=== PATIENT | male | born 1950 | race Hispanic/Latino ===

== ENCOUNTER 2021-10-16 10:20 | Emergency (ER) | payer OTHER ==
--- OUTSIDE RECORDS SUMMARY | 2021-10-16 10:22 | XMS REPORT | Continuity of Care Document ---
:1950 Author Organization [facility] t Address [address] [place] [address] Dr. Lujan [address] [place] [id number] Care Team Providers Name Role Phone Raju_P Attending Clinician Unavailable Abdirizak-Mbayo_A_AH Attending Clinician Unavailable Raju_P Admitting Clinician Unavailable Abdirizak-Mbayo_A_AH Admitting Clinician Unavailable Payers Payer Name Policy Type Policy Number Effective Date Expiration Date S ivon [facility] [place] - [id number] 2019 [employer] 00:00:00 (MEDICARE REPLACEMENT/ADVANT AGE - HMO) Problems This patient has no known problems. Allergies, Adverse Reactions, Alerts This patient has no known allergies or adverse reactions. Medications This patient has no known medications. Procedures This patient has no known procedures. Encounters Start End Encounter Admission Attending Care Care Encounter Source Date/Time Date/Time Type Type Clinicians Facility Department ID 2020-07-29 2020-07-29 Outpatient Raju_P [facility] [id number] [place] 10:55:00 10:55:00 [facility] 2019-08-07 2019-08-07 Outpatient Abdirizak-Mbayo VFP VFP [phone] [facility] 07:19:00 07:19:00 _A_AH [id number] Family Practic e Results This patient has no known results.
[2021-10-16] MEDS ORDERED: NA CHLORIDE 0.9% 1,000 ML ONE (11:01)
[2021-10-16] MEDS ORDERED: MORPHINE 4 MG/ML SYR ONE (11:01)
[2021-10-16] MEDS ORDERED: ONDANSETRON 4 MG/2 ML VIAL ONE (11:01)
[2021-10-16 11:04] LABS: Absolute Lymphocytes (CBC) 1.2 K/uL (0.7-4.9); MPV 7.4 fL (7.6-11.3); RBC Red Blood Cell Count 4.41 M/uL (4.33-5.43)
[2021-10-16 11:22] LABS: Albumin 3.6 g/dL (3.4-5.0); Potassium 3.5 mmol/L (3.5-5.1); Protein, Total 7.3 g/dL (6.4-8.2)
--- NOTE | 2021-10-16 11:31 | RAD REPORT ---
EXAM DESCRIPTION: CT - Stone Protocol - 10/16/2021 11:11 am CLINICAL HISTORY: Flank pain, kidney stone suspected COMPARISON: <Comparisons> TECHNIQUE: Axial 3 mm thick images were obtained without oral or IV contrast. The [id number]-guhk span s the entirety of the system including uppermost abdomen and lung bases. All CT scans are performed using dose optimization technique as appropriate and may include automated exposure control or mA/KV adjustment according to patient size. FINDINGS: No hydronephrosis of either kidney is present. The patient does have a 6 millimeter stone in the distal right ureter approximately 2 cm from the UVJ. This may be nonobstructive because the pr ovided history was left flank pain. No stone in the left collecting system. Patient has bilateral non obstructing calyx or pyramid calculi. A 2-3 mm stone is seen in the anterior mid right kidney. 2 mm c alcifications seen in the anterior mid left kidney with 3 mm anterior lower pole and 7 mm left lower pole calculus present. The 7 mm calcification is new or enlarged from prior imaging. Minimal perineph kyung stranding is present similar to comparison. No suspicious renal masses. Isodense masses and pyelo nephritis are not excluded on a stone protocol CT scan. No significant adrenal finding. No bladder ca lculus is present. Calcifications are seen in the prostate gland similar to comparison. A 16 mm low-density mass upper pole right kidney is probably a cyst, enlarged from prior imaging. Imaged portions of the liver, spleen and pancreas show no suspicious findings on non-contrast imaging . No gallbladder or biliary tree abnormality identified. No suspicious bowel findings. No appendicitis findings. Moderate severity diverticulosis of the sigmo id colon present without diverticulitis. No mass or bulky lymphadenopathy. Small bilateral fat filled inguinal hernias are present showing sli ght enlargement from 2017. No edematous or congested appearance to the fat. No free air, free fluid o r inflammatory stranding. No significant bony abnormality. IMPRESSION: Provided history is left-sided flank pain. There is no left-sided hydronephrosis or obst ructing calculus. Nonobstructing calculi are present on the left as detailed. Distal right ureter 6 mm calcification 2 cm from the UVJ. There is no right-sided hydronephrosis. Rig ht-sided nonobstructing calyx calculi noted. Right kidney 16 mm round low-density mass is probably an incidental cyst enlarged from 2017. Full ass essment is limited in the absence contrast. No acute or emergent abdominal or pelvic finding. Isodense masses and pyelonephritis are not excluded on stone protocol technique.
[2021-10-16 13:14] LABS: Urine Blood 2+ (Negative); Urine Glucose Negative (Negative); Urine Protein Negative (Negative); Urine Specific Gravity >=1.030 (1.005-1.030)
[2021-10-16 13:25] LABS: Urine Bacteria NONE SEEN /HPF (NONE SEEN); Urine RBC <5 /HPF (NONE SEEN)
--- NOTE | 2021-10-16 13:34 | ER ---
Nurse's Notes [facility] Name: Baljit Kelley Age: 70 yrs Sex: Male : 1950 Arrival Date: 10/16/2021 Time: 10:22 Bed 16 Private MD: Abner Chiu R Diagnosis: Calculus of ureter Presentation: 10/16 10:31 Chief complaint: Patient states: "I started having pain in my left flank 3 days ago and ab2 its been getting worse, now I cant walk without pain." Pt denies any burning with urination or blood in the urine. Coronavirus screen: Vaccine status: Patient reports receiving the 2nd dose of the covid vaccine. Client denies travel out of the [place] in the last 14 days. At this time, the client does not indicate any symptoms associated with coronavirus-19. Ebola Screen: Patient negative for fever greater than or equal to 101.5 degrees Fahrenheit, and additional compatible Ebola Virus Disease symptoms Patient denies exposure to infectious person. Patient denies travel to an Ebola-affected area in the 21 days before illness onset. No symptoms or risks identified at this time. Initial Sepsis Screen: Does the patient meet any 2 criteria? No. Patient's initial sepsis screen is negative. Does the patient have a suspected source of infection? No. Patient's initial sepsis screen is negative. Risk Assessment: Do you want to hurt yourself or someone else? Patient reports no desire to harm self or others. Onset of symptoms is unknown. 10:31 Method Of Arrival: Ambulatory ab2 10:31 Acuity: DEVI 3 ab2 Triage Assessment: 10:33 General: Appears in no apparent distress. uncomfortable, Behavior is calm, cooperative, ab2 appropriate for age. Pain: Complains of pain in left low back. Neuro: Level of Consciousness is awake, alert, obeys commands, Oriented to person, place, time, situation, Appropriate for age. Cardiovascular: No deficits noted. Denies chest pain, shortness of breath, Patient's skin is warm and dry. Respiratory: Airway is patent Respiratory effort is even, unlabored, Respiratory pattern is regular, symmetrical. GI: No deficits noted. No signs and/or symptoms were reported involving the gastrointestinal system. : Reports pain in left flank(s), Denies burning with urination, inability to void, urinary frequency, urgency. Historical: - Allergies: 10:33 No Known Allergies; ab2 - PMHx: 10:33 None; ab2 - PSHx: 10:33 None; ab2 - Immunization history:: Adult Immunizations up to date. - Social history:: Smoking status: Patient denies any tobacco usage or history of. Screenin:15 Abuse screen: Denies threats or abuse. Nutritional screening: No deficits noted. jd3 Tuberculosis screening: No symptoms or risk factors identified. Fall Risk Ambulatory Aid- None/Bed Rest/Nurse Assist (0 pts). Gait- Normal/Bed Rest/Wheelchair (0 pts) Mental Status- Oriented to own ability (0 pts). Total Ansari Fall Scale indicates No Risk (0-24 pts). Assessment: 10:55 General: Appears in no apparent distress. comfortable, Behavior is calm, cooperative, jd3 appropriate for age. Pain: Complains of pain in left flank Quality of pain is described as aching, crampy, radiating. Neuro: Level of Consciousness is awake, alert, obeys commands, Oriented to person, place, time, situation. Cardiovascular: Capillary refill < 3 seconds Patient's skin is warm and dry. Respiratory: Airway is patent Respiratory effort is even, unlabored, Respiratory pattern is regular, symmetrical, Denies cough, shortness of breath. GI: Abdomen is round non-distended, Abd is soft and non tender X 4 quads. Patient currently denies diarrhea, nausea, vomiting. : Reports pain in left flank(s), Denies burning with urination, blood in urine. EENT: No signs and/or symptoms were reported regarding the EENT system. Derm: Skin is intact, Skin is dry, Skin is normal, Skin temperature is warm. Musculoskeletal: Circulation, motion, and sensation intact. Range of motion: intact in all extremities. 11:16 Reassessment: Patient appears in no apparent distress at this time. Patient and/or jd3 family updated on plan of care and expected duration. Pain level reassessed. Patient is alert, oriented x 3, equal unlabored respirations, skin warm/dry/pink. 13:07 Reassessment: Patient appears in no apparent distress at this time. Patient and/or jd3 family updated on plan of care and expected duration. Pain level reassessed. Patient is alert, oriented x 3, equal unlabored respirations, skin warm/dry/pink. Patient states feeling better. 13:53 Reassessment: Patient appears in no apparent distress at this time. Patient and/or jd3 family updated on plan of care and expected duration. Pain level reassessed. Patient is alert, oriented x 3, equal unlabored respirations, skin warm/dry/pink. Patient states feeling better. Vital Signs: 10:31 BP 137 / 94; Pulse 68; Resp 17; Temp 98.2; Pulse Ox 98% ; Weight 86.18 kg; Height 5 ft. ab2 7 in. (170.18 cm); Pain 10/10; 13:07 BP 128 / 89; Pulse 67; Resp 18 S; Pulse Ox 99% on R/A; jd3 10:31 Body Mass Index 29.76 (86.18 kg, 170.18 cm) ab2 ED Course: 10:22 Patient arrived in ED. am2 10:22 Abner Chiu MD is Private Physician. am2 10:33 Triage completed. ab2 10:34 Arm band placed on right wrist. ab2 10:35 Barber Harris NP is PHCP. pm1 10:35 Leonel Trinh MD is Attending Physician. pm1 10:37 Bhaskar Reno RN is Primary Nurse. jd3 10:55 Inserted saline lock: 20 gauge in left antecubital area, using aseptic technique. Blood jd3 collected. 11:13 CT Stone Protocol In Process Unspecified. EDMS 11:15 Patient has correct armband on for positive identification. Bed in low position. Call jd3 light in reach. Side rails up X 1. Adult w/ patient. Pulse ox on. NIBP on. 13:53 No provider procedures requiring assistance completed. IV discontinued, intact, jd3 bleeding controlled, No redness/swelling at site. Pressure dressing applied. Administered Medications: 11:02 Drug: NS 0.9% 1000 ml Route: IV; Rate: 1 bolus; Site: left antecubital; jd3 12:00 Follow up: Response: No adverse reaction; IV Status: Completed infusion; IV Intake: jd3 1000ml 11:02 Drug: morphine 4 mg Route: IVP; Site: left antecubital; jd3 12:00 Follow up: Response: No adverse reaction; RASS: Alert and Calm (0) jd3 11:03 Drug: Zofran (Ondansetron) 4 mg Route: IVP; Site: left antecubital; jd3 12:00 Follow up: Response: No adverse reaction jd3 Intake: 12:00 IV: 1000ml; Total: 1000ml. jd3 Outcome: 13:33 Discharge ordered by . pm1 13:53 Discharged to home ambulatory, with family. jd3 13:53 Condition: stable 13:53 Discharge instructions given to patient, Instructed on discharge instructions, follow up and referral plans. medication usage, Demonstrated understanding of instructions, follow-up care, medications, Prescriptions given X 2. 13:53 Patient left the ED. jd3 Signatures: Dispatcher [employer] EDMS Barber Harris NP ELEMENTARY TEACHER pm1 Olga Lidia Tran am2 Bhaskar Reno RN RN jd3 Titi Will2
--- NOTE | 2021-10-16 13:34 | EDPHYS ---
Physician Documentation [facility] Name: Baljit Kelley Age: 70 yrs Sex: Male : 1950 Arrival Date: 10/16/2021 Time: 10:22 Bed 16 Private MD: Abner Chiu R ED Physician Leonel Trinh HPI: 10/16 10:40 This 70 yrs old Male presents to ER via Ambulatory with complaints of Flank pm1 Pain. 10:40 The patient complains of pain in the left low back. The pain radiates to the left pm1 groin. Onset: The symptoms/episode began/occurred 3 day(s) ago. Modifying factors: The symptoms are alleviated by nothing. the symptoms are aggravated by nothing. Associated signs and symptoms: Pertinent negatives: diarrhea, dysuria, fever, hematuria, nausea, vomiting. Severity of pain: in the emergency department the pain is unchanged. The patient has experienced similar episodes in the past, a few times, today's symptoms are similar, to previous kidney stones. The patient has not recently seen a physician. Historical: - Allergies: 10:33 No Known Allergies; ab2 - PMHx: 10:33 None; ab2 - PSHx: 10:33 None; ab2 - Immunization history:: Adult Immunizations up to date. - Social history:: Smoking status: Patient denies any tobacco usage or history of. ROS: 10:40 Constitutional: Negative for fever, chills, and weight loss, Cardiovascular: Negative pm1 for chest pain, palpitations, and edema, Respiratory: Negative for shortness of breath, cough, wheezing, and pleuritic chest pain. 10:40 : Negative for injury, bleeding, discharge, and swelling, MS/Extremity: Negative for injury and deformity, Skin: Negative for injury, rash, and discoloration, Neuro: Negative for headache, weakness, numbness, tingling, and seizure. 10:40 Abdomen/GI: Negative for abdominal pain, nausea, vomiting, and diarrhea, constipation. 10:40 Back: Positive for flank pain, on the left. 10:40 All other systems are negative. Exam: 10:40 Constitutional: This is a well developed, well nourished patient who is awake, alert, pm1 and in no acute distress. Head/Face: Normocephalic, atraumatic. 10:40 Back: No spinal tenderness. No costovertebral tenderness. Full range of motion. Skin: Warm, dry with normal turgor. Normal color with no rashes, no lesions, and no evidence of cellulitis. MS/ Extremity: Pulses equal, no cyanosis. Neurovascular intact. Full, normal range of motion. 10:40 Cardiovascular: Exam negative for acute changes, Rate: normal, Rhythm: regular, Pulses: no pulse deficits are appreciated, Heart sounds: normal. 10:40 Respiratory: Exam negative for acute changes, respiratory distress, shortness of breath, Breath sounds: are clear throughout. 10:40 Abdomen/GI: Inspection: abdomen appears normal, Palpation: abdomen is soft and non-tender, in all quadrants. 10:40 Neuro: Exam negative for acute changes, Orientation: is normal, Mentation: is normal, Motor: is normal, moves all fours. Vital Signs: 10:31 BP 137 / 94; Pulse 68; Resp 17; Temp 98.2; Pulse Ox 98% ; Weight 86.18 kg; Height 5 ft. ab2 7 in. (170.18 cm); Pain 10/10; 13:07 BP 128 / 89; Pulse 67; Resp 18 S; Pulse Ox 99% on R/A; jd3 10:31 Body Mass Index 29.76 (86.18 kg, 170.18 cm) ab2 MDM: 10:35 Patient medically screened. pm1 11:42 Special discussion: I discussed with the patient the need to follow-up with the pm1 PCP/specialist for the noted incidental finding on X-ray/CT scanning. follow up with PCP for further monitoring of incidental cyst finding that has changed in size since last imaging. 12:07 Data reviewed: vital signs. Data interpreted: Pulse oximetry: on room air is 98 %. pm1 Interpretation: normal. 13:32 Counseling: I had a detailed discussion with the patient and/or guardian regarding: the pm1 historical points, exam findings, and any diagnostic results supporting the discharge/admit diagnosis, lab results, radiology results, the need for outpatient follow up, to return to the emergency department if symptoms worsen or persist or if there are any questions or concerns that arise at home. 10/16 10:40 Order name: CBC with Diff; Complete Time: 11:07 pm1 10/16 10:40 Order name: CMP; Complete Time: 11:28 pm1 10/16 10:40 Order name: Lipase; Complete Time: 11:28 pm1 10/16 10:40 Order name: Urine Microscopic Only; Complete Time: 13:32 pm1 10/16 10:46 Order name: CT Stone Protocol; Complete Time: 11:37 pm1 10/16 13:14 Order name: Urine Dipstick-Ancillary; Complete Time: 13:32 EDMS 10/16 10:40 Order name: IV Saline Lock; Complete Time: 10:55 pm1 10/16 10:40 Order name: Labs collected and sent; Complete Time: 10:55 pm1 10/16 10:40 Order name: Urine Dipstick-Ancillary (obtain specimen); Complete Time: 13:22 pm1 Administered Medications: 11:02 Drug: NS 0.9% 1000 ml Route: IV; Rate: 1 bolus; Site: left antecubital; jd3 12:00 Follow up: Response: No adverse reaction; IV Status: Completed infusion; IV Intake: jd3 1000ml 11:02 Drug: morphine 4 mg Route: IVP; Site: left antecubital; jd3 12:00 Follow up: Response: No adverse reaction; RASS: Alert and Calm (0) jd3 11:03 Drug: Zofran (Ondansetron) 4 mg Route: IVP; Site: left antecubital; jd3 12:00 Follow up: Response: No adverse reaction jd3 Disposition: 15:50 Co-signature as Attending Physician, Leonel Trinh MD I agree with the assessment and kdr plan of care. Disposition Summary: 10/16/21 13:33 Discharge Ordered Location: Home pm1 Problem: new pm1 Symptoms: have improved pm1 Condition: Stable pm1 Diagnosis - Calculus of ureter pm1 Followup: pm1 - With: Emergency Department - When: As needed - Reason: Worsening of condition Followup: pm1 - With: Private Physician - When: 2 - 3 days - Reason: Recheck today's complaints, Continuance of care, Re-evaluation by your physician Discharge Instructions: - Discharge Summary Sheet pm1 - Kidney Stones pm1 - Dietary Guidelines to Help Prevent Kidney Stones pm1 Forms: - Medication Reconciliation Form pm1 - Thank You Letter pm1 - Antibiotic Education pm1 - Prescription Opioid Use pm1 Prescriptions: - Flomax 0.4 mg Oral capsule - take 1 capsule by ORAL route once daily As needed 1/2 hour following the same pm1 meal each day; 5 capsule; Refills: 0, Product Selection Permitted - Tramadol 50 mg Oral Tablet - take 1 tablet by ORAL route every 8 hours as needed; 12 tablet; Refills: 0, pm1 Product Selection Permitted Signatures: Leonel Cristina MD MD kdr Marinas, Patrick, NP INSTRUCTOR WARPER pm1 Bhaskar Reno RN RN jd3 Titi Will ab2
[2021-10-16 14:42] VITALS: BP 128/89; TEMP 98.2; O2SAT 99
== END 2021-10-16 13:53 | disposition home or self-care (01) ==
LOC: ER 10:20
DX: N20.1 Calculus of ureter (principal)
CPT/HCPCS: 96361; 85025; 36415; 83690; 80053; 76377; 74176; 96375; 96374; 99284; J7030; J2405; 81003; 81015

== ENCOUNTER 2021-11-29 11:53 | Emergency (ER) | payer OTHER ==
--- OUTSIDE RECORDS SUMMARY | 2021-11-29 11:57 | XMS REPORT | Continuity of Care Document ---
:1950 Author Organization [facility] t Address [facility] [place] [address] Lujan [address] [place] [address] Care Team Providers Name Role Phone Raju_P Attending Clinician Unavailable Abdirizak-Mbayo_A_AH Attending Clinician Unavailable Raju_P Admitting Clinician Unavailable Abdirizak-Mbayo_A_AH Admitting Clinician Unavailable Payers Payer Name Policy Type Policy Number Effective Date Expiration Date S ivon [facility] [place] - [id number] 2019 [employer] 00:00:00 (MEDICARE REPLACEMENT/ADVANT AGE - [...] ID 2020-07-29 2020-07-29 Outpatient Raju_P [facility] [id number] [place] 10:55:00 10:55:00 [facility]10 [facility] 2019-08-07 2019-08-07 Outpatient Abdirizak-Mbayo VFP VFP [id number] [facility] 07:19:00 07:19:00 _A_AH [id number] Family Practic e Results This patient has no known results.
--- NOTE | 2021-11-29 13:28 | RAD REPORT ---
EXAM DESCRIPTION: CT - Head Brain Wo Cont - 11/29/2021 1:22 pm CLINICAL HISTORY: Vision loss, monocular Headache, drowsiness, CVA symptomology COMPARISON: No comparisons TECHNIQUE: All CT scans are performed using dose optimization technique as appropriate and may inclu de automated exposure control or mA/KV adjustment according to patient size. FINDINGS: No intracranial hemorrhage, hydrocephalus or extra-axial fluid collection.No areas of brai n edema or evidence of midline shift. The paranasal sinuses and mastoids are clear. The calvarium is intact. IMPRESSION: No acute intracranial abnormality.
[2021-11-29 14:46] LABS: Absolute Lymphocytes (CBC) 2.3 K/uL (0.7-4.9); Hematocrit 41.6 % (39.6-49.0); Lymphocytes % 33.4 % (15.3-44.8); MPV 7.1 fL (7.6-11.3); RBC Red Blood Cell Count 4.51 M/uL (4.33-5.43)
[2021-11-29 14:51] LABS: Protime INR 0.96
[2021-11-29] MEDS ORDERED: ASPIRIN 81 MG CHEWABLE TABLET ONE (15:04)
[2021-11-29 15:06] LABS: ALT/SGPT 21 U/L (12-78); AST/SGOT 17 U/L (15-37); Albumin 3.7 g/dL (3.4-5.0); Alkaline Phosphatase 69 U/L (45-117); BUN Blood Urea Nitrogen 16 mg/dL (7-18); Bicarbonate 28 mmol/L (21-32); Bilirubin Total 0.5 mg/dL (0.2-1.0); Glomerular Filtration Rate 75 ml/min (=/>90); Glucose Level 83 mg/dL (74-106); Magnesium 2.3 mg/dL (1.8-2.4); Potassium 3.7 mmol/L (3.5-5.1); Protein, Total 7.9 g/dL (6.4-8.2); Sodium Level 140 mmol/L (136-145); Troponin High Sensitivity 5.1 pg/mL (<58.9)
[2021-11-29 15:08] LABS: Bilirubin Direct < 0.1 mg/dL (0-0.2)
--- NOTE | 2021-11-29 17:18 | RAD REPORT ---
EXAM DESCRIPTION: MRI - MRA Head Wo Cont - 11/29/2021 5:08 pm CLINICAL HISTORY: right eye vision loss CVA COMPARISON: Head Brain Wo Cont dated 11/29/2021 FINDINGS: 3D noncontrast [id number] MR angiography of the [place] was performed. No aneurysm, flow-limiting stenosis or vascular malformation is seen. Forward flow seen in codominant vertebral arteries. The visualized dural venous sinuses appear patent. IMPRESSION: No significant flow abnormality of the [place] is identified.
--- NOTE | 2021-11-29 17:31 | RAD REPORT ---
EXAM DESCRIPTION: MRI - Brain W/Wo Cont - 11/29/2021 5:21 pm CLINICAL HISTORY: RIGHT EYE VISION LOSS Headache, drowsiness, vision loss, CVA symptomology COMPARISON: Head Brain Wo Cont dated 11/29/2021 TECHNIQUE: Multi-sequence, multiplanar MR imaging of the brain was performed with contrast. FINDINGS: No intracranial hemorrhage, hydrocephalus, or extra-axial fluid collection.Minimal foci of FLAIR hyperintensity in the periventricular and frontal region likely chronic microvascular ischemic changes. No edema or shift of midline structures. No intracranial mass. DWI is negative for acute CV A. The midline structures are normally formed. Mastoid air cells and paranasal sinuses are clear. Post-contrast images show no abnormal enhancement to suggest tumor or infection. IMPRESSION: Negative for acute CVA or other acute intracranial finding.
--- NOTE | 2021-11-29 18:06 | RAD REPORT ---
EXAM DESCRIPTION: MRI - MRA Neck W/Wo Cont - 11/29/2021 5:42 pm CLINICAL HISTORY: RIGHT EYE VISION LOSS Headache, drowsiness, CVA symptomology COMPARISON: No comparisons FINDINGS: Contrast enhance 2D [id number] MR angiography of the neck vessels was performed. A left aortic arch is present. Widely patent bilateral subclavian and common carotid artery is noted. No significant carotid stenosis is identified bilaterally. Codominant vertebral arteries are present . IMPRESSION: No significant flow abnormality of the neck vessels identified.
--- NOTE | 2021-11-29 18:33 | EDPHYS ---
Physician Documentation [facility] Name: Baljit Kelley Age: 71 yrs Sex: Male : 1950 Arrival Date: 11/29/2021 Time: 11:55 Bed 19 Private MD: Abner Chiu R ED Physician Dipak Monet HPI: 11/29 12:58 This 71 yrs old Male presents to ER via Ambulatory with complaints of Sent By cp . 12:58 The patient is experiencing blurred vision, decreased vision, to the right eye. Onset: cp The symptoms/episode began/occurred 1 month(s) ago. Duration: the symptoms are continuous. 12:58 Associated signs and symptoms: Pertinent negatives: dizziness, ear ache, fever, cp headache, redness, drainage from eye, eye pain, injury to eye. Patient wears glasses. 13:00 Patient reports he was referred to ED by pcp, DR Chiu, for evaluation. Patient reports cp right eye blurry vision and decreased vision started 1 month ago and that he was seen by eye doctor 11-26-2021 and diagnosed "stroke" of right eye. Patient reports he saw DR Chiu today who referred him to ED for MRI of brain to r/o CVA. Historical: - Allergies: 12:54 Unknown Antibiotic; vg1 - PMHx: 12:54 Hypertensive disorder; vg1 - Immunization history:: Client reports receiving the 2nd dose of the Covid vaccine. - Social history:: Smoking status: Patient denies any tobacco usage or history of. ROS: 13:05 Constitutional: Negative for body aches, chills, fever, poor PO intake. cp 13:05 Eyes: Positive for blurry vision, vision loss, of the right eye, Negative for cp discharge, pain, redness. 13:05 ENT: Negative for drainage from ear(s), ear pain, sore throat, difficulty swallowing, difficulty handling secretions. 13:05 Cardiovascular: Negative for chest pain, edema, palpitations. 13:05 Respiratory: Negative for cough, shortness of breath, wheezing. 13:05 Abdomen/GI: Negative for abdominal pain, nausea, vomiting, and diarrhea. 13:05 Skin: Negative for cellulitis, rash. 13:05 Neuro: Negative for altered mental status, dizziness, headache, numbness, syncope, weakness. 13:05 All other systems are negative. Exam: 13:10 Constitutional: The patient appears in no acute distress, alert, awake, cp non-diaphoretic, non-toxic, well developed, well nourished. 13:10 Head/Face: Normocephalic, atraumatic. cp 13:10 Eyes: Periorbital structures: appear normal, Pupils: equal, round, and reactive to light and accomodation, Extraocular movements: intact throughout, Conjunctiva: normal, no exudate, no injection, Sclera: no appreciated abnormality, Lids and lashes: appear normal, bilaterally, Visual gatica: are intact, Examination of the other eye reveals no obvious gross abnormality. 13:10 ENT: External ear(s): are unremarkable, Nose: is normal, Mouth: Lips: moist, Oral mucosa: moist, Posterior pharynx: Airway: no evidence of obstruction, patent. 13:10 Neck: ROM/movement: is normal, is supple, without pain, no range of motions limitations. 13:10 Chest/axilla: Inspection: normal. 13:10 Cardiovascular: Rate: normal, Rhythm: regular, Pulses: Pulses are 2+ in right radial artery and left radial artery. 13:10 Respiratory: the patient does not display signs of respiratory distress, Respirations: normal, no use of accessory muscles, no retractions, labored breathing, is not present, Breath sounds: are clear throughout, no decreased breath sounds, no stridor, no wheezing. 13:10 Abdomen/GI: Exam negative for discomfort, distension, guarding, Inspection: abdomen appears normal. 13:10 Neuro: Orientation: to person, place \\T\\ time. Mentation: is normal, Cerebellar function: is grossly normal, Motor: moves all fours, strength is normal, Sensation: is normal. 14:51 ECG was reviewed by the Attending Physician. cp Vital Signs: 12:45 BP 165 / 91; Pulse 65; Resp 16; Temp 97.7; Pulse Ox 98% on R/A; Weight 83.46 kg; Height vg1 5 ft. 8 in. (172.72 cm); Pain 5/10; 14:48 BP 161 / 95; Pulse 69; Pulse Ox 98% on R/A; ap3 15:38 BP 154 / 85; Pulse 64; Pulse Ox 96% on R/A; ap3 18:04 BP 168 / 94; Pulse 59; Pulse Ox 100% on R/A; ap3 12:45 Body Mass Index 27.98 (83.46 kg, 172.72 cm) vg1 Visual Acuity: 17:43 Left Eye Visual acuity 20/50, Normal; Right Eye Visual acuity 20/70, Normal; Both Eyes ap3 Visual acuity 20/50; Without Lenses; MDM: 14:51 Patient medically screened. cp 18:30 Data reviewed: vital signs, nurses notes, lab test result(s), EKG, radiologic studies, cp CT scan, MRI. 18:30 Differential diagnosis: retinal detachment, CVA, carotid dissection. Test cp interpretation: by ED physician or midlevel provider: ECG. Counseling: I had a detailed discussion with the patient and/or guardian regarding: the historical points, exam findings, and any diagnostic results supporting the discharge/admit diagnosis, the presence of at least one elevated blood pressure reading (>120/80) during this emergency department visit, lab results, radiology results, the need for outpatient follow up, an early years teacher, to return to the emergency department if symptoms worsen or persist or if there are any questions or concerns that arise at home. 18:30 ED course: VSS. Discussed results of radiology studies that were negative for acute cp findings. Recommend daily baby aspirin and f/u with PCP. 11/29 12:54 Order name: Basic Metabolic Panel; Complete Time: 15:11 cp 11/29 15:11 Interpretation: Normal except: CL 109; GFR 75; CA 8.3. cp 11/29 12:54 Order name: CBC with Diff; Complete Time: 14:51 cp 11/29 15:57 Interpretation: Normal except: RDW 15.4; MPV 7.1. cp 11/29 12:54 Order name: LFT's; Complete Time: 15:11 cp 11/29 15:11 Interpretation: Normal except: GLOB 4.2; A/G 0.9. cp 11/29 12:54 Order name: Magnesium; Complete Time: 15:11 cp 11/29 12:54 Order name: PT-INR; Complete Time: 15:11 cp 11/29 12:54 Order name: Troponin HS; Complete Time: 15:11 cp 11/29 12:54 Order name: Cardiac monitoring; Complete Time: 14:53 cp 11/29 12:54 Order name: CT Head Brain wo Cont; Complete Time: 14:51 cp 11/29 14:51 Interpretation: Report reviewed. cp 11/29 14:56 Order name: MRA Head Wo Cont; Complete Time: 18:18 EDMS 11/29 18:27 Interpretation: Report reviewed. cp 11/29 14:59 Order name: Brain W/Wo Cont; Complete Time: 18:18 EDMS 11/29 18:27 Interpretation: Report reviewed. cp 11/29 14:59 Order name: MRA Neck W/Wo Cont; Complete Time: 18:18 EDMS 11/29 18:27 Interpretation: Report reviewed. cp 11/29 12:54 Order name: EKG - Nurse/Tech; Complete Time: 14:47 cp 11/29 12:54 Order name: IV Saline Lock; Complete Time: 14:47 cp 11/29 12:54 Order name: Labs collected and sent; Complete Time: 14:47 cp 11/29 12:54 Order name: O2 Per Protocol; Complete Time: 13:01 cp 11/29 12:54 Order name: O2 Sat Monitoring; Complete Time: 13:01 cp 11/29 13:01 Order name: Visual Acuity; Complete Time: 18:03 cp EC:51 Rate is 51 beats/min. Rhythm is regular. VT interval is normal. QRS interval is normal. cp QT interval is normal. T waves are Inverted in lead aVR. Interpreted by me. Reviewed by me. Administered Medications: 15:03 Drug: Aspirin 81 mg Route: PO; ap3 18:03 Follow up: Response: No adverse reaction ap3 Disposition: 19:05 Co-signature as Attending Physician, Dipak Monet MD. rn Disposition Summary: 11/29/21 18:32 Discharge Ordered Location: Home cp Problem: new cp Symptoms: are unchanged cp Condition: Stable cp Diagnosis - Other visual disturbances - right eye cp - Elevated blood-pressure reading, without diagnosis of hypertension cp Followup: cp - With: Abner Chiu MD - When: 2 - 3 days - Reason: Recheck today's complaints Discharge Instructions: - Discharge Summary Sheet cp - Blurred Vision, Adult cp - Visual Disturbances cp - Aspirin and Your Heart cp - How to Take Your Blood Pressure, [id number]-[id number] cp - Form - Blood Pressure Record Sheet cp Forms: - Medication Reconciliation Form cp - Thank You Letter cp - Antibiotic Education cp - Prescription Opioid Use cp Signatures: Dispatcher [employer] EDMS Dipak Monet MD MD rn Page, Corey, PA PA cp Olga Lidia Lopez RN RN ap3 Carole Shah RN RN vg1 Corrections: (The following items were deleted from the chart) 12:57 12:54 Allergies: No Known Allergies; vg1 vg1 14:56 13:00 MR STROKE PROTOCOL+MRI.RAD.BRZ ordered. EDMS EDMS
--- NOTE | 2021-11-29 18:33 | ER ---
Nurse's Notes [facility] Name: Baljit Kelley Age: 71 yrs Sex: Male : 1950 Arrival Date: 11/29/2021 Time: 11:55 Bed 19 Private MD: Abner Chiu R Diagnosis: Other visual disturbances-right eye;Elevated blood-pressure reading, without diagnosis of hypertension Presentation: 11/29 12:45 Chief complaint: Patient states: blurred vision in Right eye and headache. Patient's vg1 son or daughter states: Pt was seen at the eye doctor on Monday11/26/21 and was told 'had a stroke in the Right eye'; Today pt saw Dr Chiu and was told to come to ED for a MRI. Coronavirus screen: Vaccine status: Patient reports receiving the 2nd dose of the covid vaccine. Client denies travel out of the [place] in the last 14 days. Ebola Screen: Patient denies exposure to infectious person. Patient denies travel to an Ebola-affected area in the 21 days before illness onset. Initial Sepsis Screen: Does the patient meet any 2 criteria? No. Patient's initial sepsis screen is negative. Does the patient have a suspected source of infection? No. Patient's initial sepsis screen is negative. Risk Assessment: Do you want to hurt yourself or someone else? Patient reports no desire to harm self or others. Onset of symptoms was November 26, 2021. 12:45 Method Of Arrival: Ambulatory vg1 12:45 Acuity: DEVI 3 vg1 Triage Assessment: 12:58 General: Appears comfortable, Behavior is calm, cooperative. Pain: Complains of pain in vg1 head Pain currently is 5 out of 10 on a pain scale. Neuro: [place] Agitation-Sedation Scale (RASS): 0 - Alert and Calm Level of Consciousness is awake, alert, obeys commands, Oriented to person, place, time, situation, Reports blurred vision headache. Historical: - Allergies: 12:54 Unknown Antibiotic; vg1 - PMHx: 12:54 Hypertensive disorder; vg1 - Immunization history:: Client reports receiving the 2nd dose of the Covid vaccine. - Social history:: Smoking status: Patient denies any tobacco usage or history of. Screenin:48 Abuse screen: Denies threats or abuse. Nutritional screening: No deficits noted. ap3 Tuberculosis screening: No symptoms or risk factors identified. 18:40 Fall Risk None identified. ap3 Assessment: 17:44 General: Appears in no apparent distress. comfortable, Behavior is calm, cooperative, ap3 appropriate for age. Pain: Denies pain. Neuro: Level of Consciousness is awake, alert, obeys commands, Oriented to person, place, time, situation, Appropriate for age Speech is normal, Facial symmetry appears normal. Cardiovascular: Patient's skin is warm and dry. Respiratory: Airway is patent Respiratory effort is even, unlabored. Vital Signs: 12:45 BP 165 / 91; Pulse 65; Resp 16; Temp 97.7; Pulse Ox 98% on R/A; Weight 83.46 kg; Height vg1 5 ft. 8 in. (172.72 cm); Pain 5/10; 14:48 BP 161 / 95; Pulse 69; Pulse Ox 98% on R/A; ap3 15:38 BP 154 / 85; Pulse 64; Pulse Ox 96% on R/A; ap3 18:04 BP 168 / 94; Pulse 59; Pulse Ox 100% on R/A; ap3 12:45 Body Mass Index 27.98 (83.46 kg, 172.72 cm) vg1 Visual Acuity: 17:43 Left Eye Visual acuity 20/50, Normal; Right Eye Visual acuity 20/70, Normal; Both Eyes ap3 Visual acuity 20/50; Without Lenses; ED Course: 11:55 Patient arrived in ED. rg4 11:55 Abner Chiu MD is Private Physician. rg4 12:05 Jose Hill [facility]. cp 12:05 Dipak Monet MD is Attending Physician. cp 12:53 Triage completed. vg1 12:58 Arm band placed on. vg1 13:23 CT Head Brain wo Cont In Process Unspecified. EDMS 14:47 Olga Lidia Lopez, BINDU is Primary Nurse. ap3 14:48 Patient has correct armband on for positive identification. Bed in low position. Call ap3 light in reach. Side rails up X 1. manager performance on. Pulse ox on. NIBP on. Door closed. Noise minimized. Warm blanket given. 14:51 EKG done, by ED staff. Inserted saline lock: 20 gauge in left antecubital area, using tp1 aseptic technique. Blood collected. 17:10 MRA Head Wo Cont In Process Unspecified. EDMS 17:11 Brain W/Wo Cont In Process Unspecified. EDMS 17:11 MRA Neck W/Wo Cont In Process Unspecified. EDMS 18:28 Abner Chiu MD is Referral Physician. cp 18:39 No provider procedures requiring assistance completed. IV discontinued, intact, ap3 bleeding controlled, No redness/swelling at site. Pressure dressing applied. Administered Medications: 15:03 Drug: Aspirin 81 mg Route: PO; ap3 18:03 Follow up: Response: No adverse reaction ap3 Medication: 14:48 VIS not applicable for this client. ap3 Outcome: 18:32 Discharge ordered by MD. cp 18:40 Discharged to home ambulatory, with family. ap3 18:40 Condition: good 18:40 Discharge instructions given to patient, Instructed on discharge instructions, follow up and referral plans. Demonstrated understanding of instructions, follow-up care. 18:40 Patient left the ED. ap3 Signatures: Dispatcher [employer] EDNH Jose Hill PA PA cp Juana Shah rg4 Olga Lidia Lopez RN RN ap3 Carole Shah RN RN vg1 Xi Jones tp1 Corrections: (The following items were deleted from the chart) 12:57 12:54 Allergies: No Known Allergies; vg1 vg1
[2021-11-29 19:01] VITALS: TEMP 97.7
[2021-11-29 19:06] VITALS: BP 168/94; O2SAT 100
--- NOTE | 2021-11-30 11:08 | EKG ---
Test Date: 2021-11-29 Test Time: 14:40:16 Plane Tableman: TP MEASUREMENT RESULTS: Intervals: Rate: 51 MD: 158 QRSD: 92 QT: 414 QTc: 381 [place]: P: -4 MD: 158 QRS: 24 T: 42 INTERPRETIVE STATEMENTS: Sinus bradycardia Otherwise normal ECG Compared to ECG 07/19/2005 07:58:00 No significant changes Electronically Signed On 11-30-21 11:04:59 CDT by Max Parks
== END 2021-11-29 18:40 | disposition home or self-care (01) ==
LOC: ER 11:53
DX: H53.8 Other visual disturbances (principal); R03.0 Elevated blood-pressure reading, without diagnosis of hypertension
CPT/HCPCS: 93005; 85025; 80048; 36415; 83735; 85610; 80076; 84484; 70450; 70553; 70544; 70549; A9577; 99284

== ENCOUNTER 2022-02-11 14:14 | Emergency (ER) | payer OTHER ==
--- OUTSIDE RECORDS SUMMARY | 2022-02-11 14:51 | XMS REPORT | Continuity of Care Document ---
:1950 Author Organization [facility] t Address [address] [place] [address] Dr. Lujan [address] [place] [id number] Care Team Providers Name Role Phone Raju_P Attending Clinician Unavailable Abdirizak-Mbayo_A_AH Attending Clinician Unavailable Raju_P Admitting Clinician Unavailable Abdirizak-Mbayo_A_AH Admitting Clinician Unavailable Payers Payer Name Policy Type Policy Number Effective Date Expiration Date S ivon [facility] - [id number] 2019 [employer] 00:00:00 (MEDICARE REPLACEMENT/ADVANT AGE - [...] ID 2020-07-29 2020-07-29 Outpatient Raju_P [id number] [place] 10:55:00 10:55:00 [id number] 2019-08-07 2019-08-07 Outpatient Abdirizak-Mbayo [facility] [phone] [facility] 07:19:00 07:19:00 _A_AH [id number] Family Practic e Results This patient has no known results.
[2022-02-11] MEDS ORDERED: ASPIRIN 81 MG CHEWABLE TABLET ONE (15:13)
[2022-02-11] MEDS ORDERED: KETOROLAC 30 MG/ML INJ ONE (15:13)
--- NOTE | 2022-02-11 15:32 | RAD REPORT ---
EXAM DESCRIPTION: RAD - Chest Single View - 02/11/2022 3:03 pm CLINICAL HISTORY: CHEST PAIN COMPARISON: None TECHNIQUE: AP portable chest image was obtained 02/11/2022 3:03 pm . FINDINGS: Lungs are clear. Heart and vasculature are normal. No measurable pleural effusion and no p neumothorax. No acute bony abnormality seen. No acute aortic findings suspected. IMPRESSION: No acute cardiopulmonary process.
[2022-02-11 15:33] LABS: Absolute Lymphocytes (CBC) 1.4 K/uL (0.7-4.9); Hematocrit 40.8 % (39.6-49.0); Lymphocytes % 28.5 % (15.3-44.8); MCV 90.5 fL (80-100); RBC Red Blood Cell Count 4.52 M/uL (4.33-5.43)
[2022-02-11 15:52] LABS: Potassium 3.8 mmol/L (3.5-5.1); Troponin High Sensitivity 3.4 pg/mL (<58.9)
--- NOTE | 2022-02-11 18:20 | EDPHYS ---
Physician Documentation [facility] Name: Baljit Kelley Age: 71 yrs Sex: Male : 1950 Arrival Date: 02/11/2022 Time: 14:16 Bed 16 Private MD: ED Physician Leonel Trinh HPI: 02/11 14:40 This 71 yrs old Male presents to ER via Ambulatory with complaints of Chest jl9 Pain, and right shoulder pain/ arm rash.. 14:40 This 71 yrs old Male presents to ER via Ambulatory with complaints of Chest jl9 Pain. 14:40 Onset: The symptoms/episode began/occurred 1 week(s) ago. Associated signs and jl9 symptoms: Pertinent negatives: abdominal pain, cough, fever, headache. Modifying factors: The patient symptoms are alleviated by nothing, the patient symptoms are aggravated by nothing. The patient has not experienced similar symptoms in the past. Historical: - Allergies: 14:34 unknown antibiotic; ap3 14:34 tramadol; ap3 - Home Meds: 14:34 unknown BP medication [Active]; ap3 - PMHx: 14:34 Hypertensive disorder; ap3 - Immunization history:: Client reports receiving the 2nd dose of the Covid vaccine. - Social history:: Smoking status: Patient denies any tobacco usage or history of. ROS: 14:41 Constitutional: Negative for fever, chills, and weight loss, Eyes: Negative for injury, jl9 pain, redness, and discharge, ENT: Negative for injury, pain, and discharge, Neck: Negative for injury, pain, and swelling. 14:41 Respiratory: Negative for shortness of breath, cough, wheezing, and pleuritic chest pain, Abdomen/GI: Negative for abdominal pain, nausea, vomiting, diarrhea, and constipation, Back: Negative for injury and pain, : Negative for injury, bleeding, discharge, and swelling. 14:41 Skin: Negative for injury, rash, and discoloration, Neuro: Negative for headache, weakness, numbness, tingling, and seizure, Psych: Negative for depression, anxiety, suicide ideation, homicidal ideation, and hallucinations, Allergy/Immunology: Negative for hives, rash, and allergies, Endocrine: Negative for neck swelling, polydipsia, polyuria, polyphagia, and marked weight changes, Hematologic/Lymphatic: Negative for swollen nodes, abnormal bleeding, and unusual bruising. 14:41 Cardiovascular: Positive for chest pain, with movement, Negative for orthopnea, palpitations. 14:41 MS/extremity: Positive for pain, Right shoulder. Exam: 14:42 Constitutional: This is a well developed, well nourished patient who is awake, alert, jl9 and in no acute distress. Head/Face: Normocephalic, atraumatic. Eyes: Pupils equal round and reactive to light, extra-ocular motions intact. Lids and lashes normal. Conjunctiva and sclera are non-icteric and not injected. Cornea within normal limits. Periorbital areas with no swelling, redness, or edema. ENT: Mucous membranes moist. Neck: Trachea midline, no thyromegaly or masses palpated, and no cervical lymphadenopathy. Supple, full range of motion without nuchal rigidity, or vertebral point tenderness. No Meningismus. Chest/axilla: Normal chest wall appearance and motion. Nontender with no deformity. No lesions are appreciated. Cardiovascular: Regular rate and rhythm with a normal S1 and S2. No gallops, murmurs, or rubs. Normal PMI, no JVD. No pulse deficits. Respiratory: Lungs have equal breath sounds bilaterally, clear to auscultation and percussion. No rales, rhonchi or wheezes noted. No increased work of breathing, no retractions or nasal flaring. Abdomen/GI: Soft, non-tender, with normal bowel sounds. No distension or tympany. No guarding or rebound. No evidence of tenderness throughout. 14:42 Neuro: Awake and alert, GCS 15, oriented to person, place, time, and situation. Cranial nerves II-XII grossly intact. Motor strength 5/5 in all extremities. Sensory grossly intact. Cerebellar exam normal. Normal gait. Psych: Awake, alert, with orientation to person, place and time. Behavior, mood, and affect are within normal limits. 14:42 Musculoskeletal/extremity: Extremities: grossly normal except: pain, ROM: limited active range of motion due to pain, in the right arm. 14:42 Skin: on the right arm. Vital Signs: 14:32 BP 162 / 99; Pulse 91; Resp 17; Temp 98.1; Pulse Ox 98% ; Weight 83.46 kg; Height 5 ft. ap3 7 in. (170.18 cm); 16:00 BP 146 / 84; Pulse 71; Resp 16; Pulse Ox 93% ; bp 17:36 BP 147 / 87; Pulse 71; Resp 16; Pulse Ox 97% ; bp 14:32 Body Mass Index 28.82 (83.46 kg, 170.18 cm) ap3 MDM: 14:26 Patient medically screened. 14:43 Data reviewed: vital signs, nurses notes. 15:31 Test interpretation: by ED physician or midlevel provider: ECG, NSR 75bpm. jl9 15:57 Counseling: I had a detailed discussion with the patient and/or guardian regarding: the [facility] historical points, exam findings, and any diagnostic results supporting the discharge/admit diagnosis, lab results, radiology results, the need for outpatient follow up, to return to the emergency department if symptoms worsen or persist or if there are any questions or concerns that arise at home. 18:18 Special discussion: Patient wishes to leave and not wait for US results. . 02/11 14:31 Order name: Basic Metabolic Panel; Complete Time: 15:54 [facility] 02/11 14:31 Order name: CBC with Diff; Complete Time: 15:35 02/11 14:31 Order name: Troponin HS; Complete Time: 15:54 02/11 14:31 Order name: XRAY Chest (1 view); Complete Time: 15:35 02/11 16:31 Order name: UPPER EXTREMITY VENOUS UNILATE; Complete Time: 18:38 [facility] 02/11 14:31 Order name: EKG; Complete Time: 14:32 02/11 14:31 Order name: Cardiac monitoring; Complete Time: 15:48 02/11 14:31 Order name: EKG - Nurse/Tech; Complete Time: 15:48 02/11 14:31 Order name: IV Saline Lock; Complete Time: 15:48 02/11 14:31 Order name: Labs collected and sent; Complete Time: 15:48 02/11 14:31 Order name: O2 Per Protocol; Complete Time: 15:48 02/11 14:31 Order name: O2 Sat Monitoring; Complete Time: 15:48 Administered Medications: 15:00 Drug: Aspirin Chewable Tablet 324 mg Route: PO; bp 16:51 Follow up: Response: No adverse reaction bp 15:00 Drug: Ketorolac 30 mg Route: IVP; Site: left forearm; bp 16:51 Follow up: Response: No adverse reaction bp Disposition Summary: 02/11/22 18:20 Discharge Ordered Location: Home jl9 Condition: Stable jl9 Diagnosis - Chest pain, unspecified jl9 Followup: jl9 - With: Private Physician - When: 1 - 2 days - Reason: Recheck today's complaints, Continuance of care, Re-evaluation by your physician Discharge Instructions: - Discharge Summary Sheet jl9 - Nonspecific Chest Pain, Adult jl9 - Shingles, [id number] jl9 - Rash, Adult, [id number] jl9 Forms: - Medication Reconciliation Form jl9 - Thank You Letter jl9 - Antibiotic Education jl9 - Prescription Opioid Use jl9 Prescriptions: - Triamcinolone Acetonide 0.5 % Topical Cream - apply 1 application by TOPICAL route 2 times per day As needed; 1 tube; jl9 Refills: 0, Product Selection Permitted - Acyclovir 800 mg Oral Tablet - take 1 tablet by ORAL route 5 times per day for 10 days; 50 tablet; Refills: 0, jl9 Product Selection Permitted - Prednisone 20 mg Oral Tablet - take 2 tablets by ORAL route once daily for 5 days; 10 tablet; Refills: 0, jl9 Product Selection Permitted Signatures: Dispatcher [employer] Carlos Arroyo, RN RN Olga Lidia Kat RN RN Jono Brady jl9 Corrections: (The following items were deleted from the chart) 14:35 14:34 PMHx: Hypertensive disorder; ap3 ap3 16:31 16:08 Extremity Venous Uni Ltd+US.RAD.GORDON ordered. EDID EDMS
--- NOTE | 2022-02-11 18:20 | ER ---
Nurse's Notes [facility] Name: Baljit Kelley Age: 71 yrs Sex: Male : 1950 Arrival Date: 02/11/2022 Time: 14:16 Bed 16 Private MD: Diagnosis: Chest pain, unspecified Presentation: 02/11 14:32 Chief complaint: Patient states: he has had a rash on his right arm and hand since ap3 Monday02/07/2022. Patient states that the pain from the rash radiates into his right chest. Patients presents to the ED with a visible rash to his right arm and swelling to his right hand. Coronavirus screen: At this time, the client does not indicate any symptoms associated with coronavirus-19. Ebola Screen: No symptoms or risks identified at this time. Initial Sepsis Screen: Does the patient meet any 2 criteria? No. Patient's initial sepsis screen is negative. Does the patient have a suspected source of infection? Yes: Skin breakdown/wound. Risk Assessment: Do you want to hurt yourself or someone else? Patient reports no desire to harm self or others. Onset of symptoms was February 07, 2022. 14:32 Method Of Arrival: Ambulatory ap3 14:32 Acuity: DEVI 3 ap3 Triage Assessment: 14:34 General: Appears in no apparent distress. Behavior is calm, cooperative, appropriate ap3 for age. Pain: Complains of pain in anterior aspect of right upper chest and right arm Pain currently is 8 out of 10 on a pain scale. Pain began gradually, 2-3 days ago. Neuro: Level of Consciousness is awake, alert, obeys commands, Oriented to person, place, time, situation, Appropriate for age. Cardiovascular: Patient's skin is warm and dry. Respiratory: Airway is patent Respiratory effort is even, unlabored, Respiratory pattern is regular, symmetrical. Derm: Rash noted that is on right arm. Musculoskeletal: Swelling present in right hand. Historical: - Allergies: 14:34 unknown antibiotic; ap3 14:34 tramadol; ap3 - Home Meds: 14:34 unknown BP medication [Active]; ap3 - PMHx: 14:34 Hypertensive disorder; ap3 - Immunization history:: Client reports receiving the 2nd dose of the Covid vaccine. - Social history:: Smoking status: Patient denies any tobacco usage or history of. Screenin:36 Abuse screen: Denies threats or abuse. Nutritional screening: No deficits noted. ap3 Tuberculosis screening: No symptoms or risk factors identified. 16:00 Fall Risk None identified. bp Assessment: 14:45 General: SEE TRIAGE NOTE. bp 16:00 Reassessment: No changes from previously documented assessment. Patient and/or family bp updated on plan of care and expected duration. Pain level reassessed. 17:35 Reassessment: No changes from previously documented assessment. ALL CURRENT ORDERS bp COMPLETED. Vital Signs: 14:32 BP 162 / 99; Pulse 91; Resp 17; Temp 98.1; Pulse Ox 98% ; Weight 83.46 kg; Height 5 ft. ap3 7 in. (170.18 cm); 16:00 BP 146 / 84; Pulse 71; Resp 16; Pulse Ox 93% ; bp 17:36 BP 147 / 87; Pulse 71; Resp 16; Pulse Ox 97% ; bp 14:32 Body Mass Index 28.82 (83.46 kg, 170.18 cm) ap3 ED Course: 14:16 Patient arrived in ED. rg4 14:26 Jono Marquez is PHCP. jl9 14:26 Leonel Trinh MD is Attending Physician. jl9 14:26 Carlos Orosco, BINDU is Primary Nurse. bp 14:34 Triage completed. ap3 14:36 Arm band placed on left wrist. ap3 14:36 Patient has correct armband on for positive identification. Bed in low position. Call ap3 light in reach. Side rails up X 1. Pulse ox on. NIBP on. Door closed. Noise minimized. 14:37 Patient maintains SpO2 saturation greater than 95% on room air. ap3 15:00 Inserted saline lock: 20 gauge in left forearm, using aseptic technique. Blood bp collected. 15:05 XRAY Chest (1 view) In Process Unspecified. EDMS 17:58 UPPER EXTREMITY VENOUS UNILATE In Process Unspecified. EDMS 18:42 No provider procedures requiring assistance completed. IV discontinued, intact, bp bleeding controlled, No redness/swelling at site. Pressure dressing applied. Administered Medications: 15:00 Drug: Aspirin Chewable Tablet 324 mg Route: PO; bp 16:51 Follow up: Response: No adverse reaction bp 15:00 Drug: Ketorolac 30 mg Route: IVP; Site: left forearm; bp 16:51 Follow up: Response: No adverse reaction bp Medication: 16:00 VIS not applicable for this client. bp Outcome: 18:20 Discharge ordered by MD. adhikari 18:42 Discharged to home ambulatory. bp 18:42 Condition: stable 18:42 Discharge instructions given to patient, Instructed on discharge instructions, follow up and referral plans. medication usage, Demonstrated understanding of instructions, follow-up care, medications, Prescriptions given X 3. 18:43 Patient left the ED. bp Signatures: Dispatcher [employer] EDMS Juana Shah rg4 Carlos Orosco, RN RN bp Olga Lidia Lopez RN RN ap3 Jono Marquez Corrections: (The following items were deleted from the chart) 14:35 14:34 PMHx: Hypertensive disorder; ap3 ap3
--- NOTE | 2022-02-11 18:29 | RAD REPORT ---
EXAM DESCRIPTION: US - UPPER EXTREMITY VENOUS UNILATE - 02/11/2022 5:57 pm CLINICAL HISTORY: Right arm pain and swelling COMPARISON: None. TECHNIQUE: Real-time sonographic evaluation of the right upper extremity deep venous systems was per formed. FINDINGS: Normal compressibility, flow augmentation, phasic flow and spontaneous flow are identified in the right upper extremity deep venous system. No intraluminal filling defects seen. Internal jugu lar and subclavian veins are normal as well. IMPRESSION: No DVT in the right upper extremity.
[2022-02-11 19:37] VITALS: TEMP 98.1
[2022-02-11 19:41] VITALS: BP 147/87; O2SAT 97
--- NOTE | 2022-02-12 15:20 | EKG ---
Test Date: 2022-02-11 Test Time: 15:13:33 [place]: BP MEASUREMENT RESULTS: Intervals: Rate: 75 OH: 148 QRSD: 88 QT: 366 QTc: 408 [place]: P: 38 OH: 148 QRS: 30 T: 47 INTERPRETIVE STATEMENTS: Normal sinus rhythm Normal ECG Compared to ECG 11/29/2021 14:40:16 Sinus bradycardia no longer present Electronically Signed On 02-12-22 15:18:42 CDT by Kenny Gonzales
== END 2022-02-11 18:43 | disposition home or self-care (01) ==
LOC: ER 14:14
DX: R07.9 Chest pain, unspecified (principal); I10 Essential (primary) hypertension; Z88.1 Allergy status to other antibiotic agents; Z88.5 Allergy status to narcotic agent
CPT/HCPCS: 36415; 71045; 80048; 84484; 85025; 93005; 93971; 96374; 99284

== ENCOUNTER 2022-06-08 10:02 | Day surgery (SDC) | payer OTHER ==
[2022-06-07 15:22] LABS: Absolute Lymphocytes (CBC) 1.8 K/uL (0.7-4.9); Lymphocytes % 30.7 % (15.3-44.8); MCV 90.1 fL (80-100); MPV 7.8 fL (7.6-11.3); RBC Red Blood Cell Count 4.44 M/uL (4.33-5.43)
[2022-06-07 15:25] LABS: Potassium 3.8 mmol/L (3.5-5.1)
[2022-06-08] MEDS ORDERED: Ringers Lactate 1,000 ML IV ONE ×2 (10:23→12:33)
[2022-06-08] MEDS ORDERED: CEFAZOLIN SODIUM 1 GM/VIAL ONE (10:23)
[2022-06-08] MEDS ORDERED: MIDAZOLAM HCL 2 MG/2 ML INJ ONE (11:02)
[2022-06-08] MEDS ORDERED: LIDOCAINE 2% MPF 5 ML VIAL ONE (11:02)
[2022-06-08] MEDS ORDERED: propofoL 200 MG/20 ML VIAL IV ONE (11:02)
[2022-06-08] MEDS ORDERED: KETOROLAC 30 MG/ML INJ ONE (11:02)
[2022-06-08] MEDS ORDERED: FENTANYL CITR 100 MCG/2 ML ONE (11:02)
[2022-06-08] MEDS ORDERED: ONDANSETRON 4 MG/2 ML VIAL ONE (11:03)
[2022-06-08] MEDS ORDERED: GLYCOPYRROLATE 0.2 MG/ML SYR ONE (11:48)
[2022-06-08 13:47] VITALS: BP 121/68; TEMP 97; O2SAT 100
--- NOTE | 2022-06-08 14:53 | OP ---
Date of Procedure: 06/08/2022 Surgeon: Vipul Shaw MD Preoperative Diagnosis: Right carpal tunnel syndrome with right ulnar nerve compression at the elbow consistent with cubital tunnel syndrome. Postoperative Diagnosis: Right carpal tunnel syndrome with right ulnar nerve compression at the elbo w consistent with cubital tunnel syndrome. Procedure: Right open carpal tunnel release with right ulnar nerve decompression without transpositi on. Estimated Blood Loss: Less than 10 cc. Complications: There were no complications. Specimen: No pathology specimens sent. Indications For Operation: Mr. Kelley came to see me with complaints of incoordination of his hand as well as numbness of his ring and small fingers as well as weakness in his hands tested with weak i ntrinsics. He was sent to Neurology for suspicion of ulnar nerve compression at the elbow. They per formed both ulnar nerve testing as well as median nerve testing and found he did also have mild degre e of carpal tunnel, but very significant ulnar nerve compression at the elbow. Risks, benefits, and alternatives of different methods of treating this have been discussed with the patient. He decides to proceed. Description Of Procedure: The patient was taken to the operating room and placed in supine position. General anesthesia was obtained by staff. Following this, his right upper extremity was then prepp ed and draped in the usual sterile fashion procedure. A sterile tourniquet was then applied to the r ight upper extremity. The arm was then elevated, but not exsanguinated. Tourniquet was raised. A s tandard incision was then taken down, which parallels the thenar crease carefully through the skin wi th slight ulnar deviation at the most distal wrist crease. Meticulous hemostasis was maintained usin g bipolar electrocautery. This leads to the palmar fascia, which was then divided longitudinally. A ny obstructions over the transverse carpal ligament were then gently moved aside and a small munir was made in the transverse carpal ligament, which revealed the underlying carpal tunnel structures. Thi s was then expanded in a proximal to distal direction until there were no constricting bands. It was then expanded in a distal to proximal direction until there were no constricting bands. This includ es some degree of volar forearm fascia. After this, this incision was then closed and attention was then turned to the elbow. The medial epicondyle was easily palpated and the olecranon was also easil y palpated. The presumed course of the ulnar nerve was then marked out and an incision was made appr oximately 3 to 4 cm proximal to the olecranon and medial epicondyle. This was taken down carefully t hrough the skin and soft tissues with very meticulous dissection being used and the ulnar nerve was i dentified. Once the ulnar nerve was identified, the incision was then carried further proximally unt il we reached the intermuscular septum. The nerve was then freed up and to the intermuscular septum. After this, the incision was then proceeded more distally as we moved over the elbow. The ulnar ne rve was decompressed the ligament of [place] continuing along the course of the nerve until we reache d the heads of the flexor carpi ulnaris and the nerve was then examined in total throughout his cours e, found to have no constricting band. It did appear to be somewhat stable in the groove, but the el bow was brought through flexion and extension several times to ensure there was no subluxation or dis location of the nerve. gently irrigated and skin was gently tagged down using 2-0 Vicryl sutures followed by sewing with horizontal mattress nylon. The patient was placed in Aquacel dressin g as well as a very bulky amount of soft roll followed by Cj. He was then awakened, placed in a sli ng, and taken to recovery room. /SHAREE Voice ID: [id number] Report ID: [id number]
== END 2022-06-08 14:25 | disposition home or self-care (01) ==
LOC: OR 10:02
PROVIDERS: ATTEND Orthopaedic Surgery
PROC: 01N50ZZ Release Median Nerve, Open Approach (ICD-10-PCS; principal; 2022-06-08 12:00)
DX: G56.01 Carpal tunnel syndrome, right upper limb (principal); I10 Essential (primary) hypertension
CPT/HCPCS: 85025; 80048; 36415; 64721; J2704; J2001; J2250; J3010; J7120 ×2; J2405; J0690